=== PATIENT | female | born 1960 | race Caucasian/White ===

== ENCOUNTER → 2020-12-18 14:27 | Outpatient (CLI) | payer BC, SELFPAY ==
[2020-12-18 14:37] LABS: Basophils # 0.1 K/mm3 (0-0.2); Basophils % 0.9 % (0.1-2.0); Eosinophils % 0.8 % (0.1-12.0); Hematocrit 49.6 % (37.0-47.0); Hemoglobin 15.9 g/dL (12.2-16.2); Lymphocytes # 1.6 K/mm3 (0.7-4.5); Mean Corpuscular HGB Conc 32.1 g/dL (31.8-35.4); Mean Corpuscular Volume 96.7 fl (81-99); Mean Platelet Volume 9.3 fl (7.4-10.4); Monocytes # 0.2 K/mm3 (0.1-1.0); Monocytes % 4.7 % (1.7-9.3); Neutrophils # 3.1 K/mm3 (1.8-7.8); Neutrophils % 61.6 % (37.0-80.0); Platelet Count 282 K/mm3 (142-424); Red Blood Count 5.13 M/mm3 (4.20-5.40); Red Cell Distribution Width 13.7 % (11.5-17.5); White Blood Count 5.1 K/mm3 (4.8-10.8)
[2020-12-18 14:38] LABS: Chloride 100 mmol/L (98-107)
[2020-12-18 14:39] LABS: Potassium 4.6 mmoL/L (3.5-5.1); Sodium 138 mmol/L (136-145)
[2020-12-18 14:41] LABS: Alanine Aminotransferase 152 U/L (12-78); Aspartate Amino Transferase 126 U/L (14-36); Blood Urea Nitrogen 20 mg/dl (7-17); Estimated Glomerular Filt Rate 125 ml/min (>60); GFR (African American) 152 ML/MIN (>60)
[2020-12-18 14:42] LABS: Albumin Level 4.8 g/dl (3.5-5.0); Albumin/Globulin Ratio 1.8 (1.1-1.8); Alkaline Phosphatase 89 U/L (38-126); Anion Gap 13.6 mEq/L (5-15); Bilirubin,Total 0.8 mg/dl (0.2-1.3); Calcium 10.1 mg/dl (8.4-10.2); Carbon Dioxide 29 mmol/L (22.0-30.0); Globulin 2.7 g/dL (1.3-3.2); Glucose 90 mg/dl (74-100); Lipase 276 U/L (23-300); Total Protein,Serum 7.5 g/dl (6.3-8.2)
== END ==
PROVIDERS: Visit Provider Family Medicine
DX: G43.909 Migraine, unspecified, not intractable, without status migrainosus (principal); R10.32 Left lower quadrant pain
CPT/HCPCS: 80053; 83690; 85025

== ENCOUNTER → 2021-02-19 17:49 | Outpatient (CLI) | payer BC, SELFPAY | PROVIDERS: Visit Provider Family Medicine | DX: R30.9 Painful micturition, unspecified (principal) | CPT/HCPCS: 87086 ==

== ENCOUNTER → 2021-02-28 08:22 | Outpatient (CLI) | payer BC, SELFPAY ==
--- NOTE | 2021-02-28 08:23 | CT_ITS ---
FINAL REPORT CLINICAL HISTORY: diffuse abdominal pain, LLQ pain FINDINGS: Axial CT images of the abdomen and pelvis were obtained without intravenous contrast. Coronal reformatted images were also obtained.This study was performed with techniques to keep radiation doses as low as reasonably achievable (ALARA). Individualized dose reduction techniques using automated exposure control or adjustment of mA and/or kV according to the patient's size were employed. Abdomen: There are mild ground-glass opacities in the lung bases which may represent pneumonia or edema. There is no evidence of renal stone or hydronephrosis. There may be a gallstone in the gallbladder. There is no biliary ductal dilation. The liver, spleen and pancreas have an unremarkable, unenhanced appearance. No mass or adenopathy is seen. No inflammatory process is identified. Pelvis: Images of the pelvis reveal no evidence of ureteral dilation or ureteral stone. The appendix is normal. There is a small umbilical hernia containing fat. There is sigmoid diverticulosis. IMPRESSION: 1. Ground-glass opacities in the lung bases which may represent pneumonia or edema. 2. Suspected gallstone in the gallbladder. If indicated, right upper quadrant ultrasound may be helpful. Reviewed, Interpreted and Dictated by Isidro Longoria III, MD Transcribed by Gladys Medeiros Authenticated by Isidro Longoria III, MD on 02/28/2021 09:24:53 AM [facility]
== END ==
PROVIDERS: PCP Family Medicine; Visit Provider Family Medicine
DX: R10.9 Unspecified abdominal pain (principal)
CPT/HCPCS: 74176

== ENCOUNTER 2023-11-13 22:00 | Outpatient (CLI) | payer BC, SELFPAY | END 2023-11-13 23:59 | disposition home or self-care (01) | LOC: LAB.DROPOF 12-28 13:54 | PROVIDERS: PCP Family Medicine; Visit Provider Family Medicine | DX: N39.0 Urinary tract infection, site not specified (principal) | CPT/HCPCS: 87086; 87088; 87186 ==

== ENCOUNTER 2024-01-21 10:13 | Outpatient (CLI) | payer BC, SELFPAY ==
[2024-01-21 18:43] LABS: Chloride 106 mmol/L (98-107)
[2024-01-21 18:46] LABS: Alanine Aminotransferase 33 U/L (12-78); Aspartate Amino Transferase 43 U/L (14-36); Blood Urea Nitrogen 19 mg/dl (7-17); Carbon Dioxide 30 mmol/L (22.0-30.0); Estimated Glomerular Filt Rate 101 ml/min (>60); GFR (African American) 122 ML/MIN (>60)
[2024-01-21 18:47] LABS: Alkaline Phosphatase 67 U/L (38-126); Bilirubin,Total 0.8 mg/dl (0.2-1.3)
[2024-01-21 18:58] LABS: Direct LDL Cholesterol 103.11 mg/dL (100-129)
[2024-01-21 19:05] LABS: Albumin Level 4.3 g/dl (3.5-5.0); Anion Gap 9.4 mEq/L (5-15); Potassium 4.4 mmoL/L (3.5-5.1); Sodium 141 mmol/L (136-145)
[2024-01-21 19:08] LABS: Globulin 2.1 g/dL (1.3-3.2); Total Protein,Serum 6.4 g/dl (6.3-8.2)
[2024-01-21 19:09] LABS: Calcium 9.8 mg/dl (8.4-10.2); Chol/HDL Ratio 3.7 (1-3.5); Cholesterol 161 mg/dl (140-200); Glucose 91 mg/dl (74-100); HDL Cholesterol 44 mg/dl (40-60); Triglycerides 98 mg/dl (30-150); VLDL Cholesterol 20 mg/dL (0-40)
[2024-01-21 19:18] LABS: Thyroid Stimulating Hormone 1.59 uIU/mL (0.465-4.68)
== END 2024-01-21 23:59 | disposition home or self-care (01) ==
LOC: LAB.DROPOF 01-22 10:30
PROVIDERS: PCP Family Medicine; Visit Provider Family Medicine
DX: E78.5 Hyperlipidemia, unspecified (principal)
CPT/HCPCS: 80053; 80061; 84443